=== PATIENT | female | born 1995 | race African-American/Black ===

== ENCOUNTER 2018-05-08 00:33 | Emergency (ER) | payer SELFPAY ==
--- NOTE | 2018-05-08 00:41 | EDPHY ---
H & P Time Seen by Provider: 05/08/18 00:38 HPI/ROS: Chief Complaint: Alcohol intoxication, vomiting HPI: 22-year-old female who was found at a house intoxicated. Patient passed out after vomiting. Is unable to ambulate on their own. Patient brought in by EMS for further evaluation. No obvious signs of trauma per EMS. Remainder of history is unobtainable secondary to the patient's intoxication. ROS: Unobtainable secondary to the patient's intoxication PMH: Unknown Medications: Unknown Allergies: Unknown Social History: Positive for alcohol Family History: non-contributory Physical Exam: Gen: Somnolent, responds to painful stimuli, maintaining airway, smells of alcohol and emesis HEENT: Atraumatic Nose: no epistaxis or deformity Eyes: PERRLA, EOMI Mouth: Moist mucosa Neck: Supple, no step-offs or deformity Chest: Atraumatic, lungs clear to auscultation Heart: S1, S2 normal, no murmur Abd: Soft, non-tender, no guarding Back: Atraumatic Ext: no edema, atraumatic Skin: no rash Neuro: Sensation grossly intact, Strength 5/5 in bilateral upper and lower extremities Constitutional: Initial Vital Signs Temperature (C) 36.6 C 05/08/18 00:43 Heart Rate 109 H 05/08/18 00:43 Respiratory Rate 18 05/08/18 00:43 Blood Pressure 130/96 H 05/08/18 00:43 O2 Sat (%) 97 05/08/18 00:43 O2 Delivery Mode Room Air Medical Decision Making ED Course/Re-evaluation: Patient is now awake and appropriate. Ambulating unassisted to the bathroom. No current complaints. Patient is tolerating oral fluids. Patient is ready for discharge with sober ride. Departure - Departure Disposition: Home, Routine, Self-Care Clinical Impression: Alcoholic intoxication Condition: Fair Instructions: Alcohol Intoxication (ED) Referrals: Patient,NotPresent [Primary Care Provider] - As per Instructions
[2018-05-08 06:12] VITALS: BP 105/69
== END 2018-05-08 06:12 | disposition home or self-care (01) ==
LOC: EDBD 00:33
DX: F10.920 Alcohol use, unspecified with intoxication, uncomplicated (principal)